=== PATIENT | female | born 1945 | race Two or more races ===

== ENCOUNTER 2018-06-18 09:29 | Inpatient (IN) | payer MEDICARE, MEDICAID, OTHER | END 2018-06-20 21:45 | disposition short-term general hospital (02) | LOC: ER 09:29 → TELE 18:41 → TELE-WESTW 20:21 | DX: I63.9 Cerebral infarction, unspecified (principal); J18.9 Pneumonia, unspecified organism; N39.0 Urinary tract infection, site not specified; I47.1 Supraventricular tachycardia; G81.94 Hemiplegia, unspecified affecting left nondominant side; R55 Syncope and collapse; I50.9 Heart failure, unspecified; E87.6 Hypokalemia; R73.9 Hyperglycemia, unspecified; I11.0 Hypertensive heart disease with heart failure; J32.9 Chronic sinusitis, unspecified; F10.10 Alcohol abuse, uncomplicated ==